=== PATIENT | female | born 1995 | race Caucasian/White ===

== ENCOUNTER 2022-10-09 08:40 | Emergency (ER) | payer OTHER ==
[~2022-10-09] VITALS: Ht 157.5 cm; Wt 70.5 kg
[2022-10-09 08:43] VITALS: BP 128/57
[2022-10-09] MEDS ORDERED: PROP50TA3 PO (08:57)
[2022-10-09 09:49] LABS: APPEARANCE,URINE CLEAR (CLEAR); BILIRUBIN,URINE NEGATIVE (NEGATIVE); GLUCOSE, URINE (UA) NEGATIVE (NEGATIVE); KETONES,URINE NEGATIVE (NEGATIVE); LEUKOCYTE ESTERASE ,URINE MODERATE (NEGATIVE); NITRATE,URINE NEGATIVE (NEGATIVE); OCCULT BLOOD,URINE NEGATIVE (NEGATIVE); PH,URINE 5.5 (5.0-8.0); PROTEIN,URINE TRACE mg/dL (NEGATIVE); SPECIFIC GRAVITIY, URINE 1.026 (1.003-1.030); UROBILINOGEN,URINE <=1.0 mg/dL (<=1.0)
[2022-10-09 09:56] LABS: RBC,URINE 0-2 /HPF (0-2)
[2022-10-09 09:57] LABS: BACTERIA,URINE Few /HPF (None Seen); SQUAMOUS EPITHELIAL CELL,UR Many /LPF (None Seen)
[2022-10-09] MEDS ORDERED: CLOT15CR23 TP (10:13)
[2022-10-09] MEDS ORDERED: CEPH-558 PO (10:13)
== END 2022-10-09 10:25 | disposition home or self-care (01) ==
LOC: EMS 08:42
DX: O23.40 Unspecified infection of urinary tract in pregnancy, unspecified trimester (principal); O99.280 Endocrine, nutritional and metabolic diseases complicating pregnancy, unspecified trimester; O98.819 Other maternal infectious and parasitic diseases complicating pregnancy, unspecified trimester; N39.0 Urinary tract infection, site not specified; Z3A.00 Weeks of gestation of pregnancy not specified; Z91.14 Patient's other noncompliance with medication regimen
CPT/HCPCS: 81001; 84703; 87086; 87186; 99283